=== PATIENT | female | born 1985 | race Two or more races ===

== ENCOUNTER 2018-04-21 02:04 | Emergency (ER) | payer SELFPAY ==
[~2018-04-21] VITALS: Ht 170.2 cm; Wt 86.2 kg
[2018-04-21 04:17] VITALS: BP 117/87
[2018-04-21] MEDS ORDERED: HYDROcodone-ACET 10/325MG TAB PO ONE (04:30)
[2018-04-21] MEDS ORDERED: cefTRIAXone SOD 1,000 MG VL IM ONE (04:30)
[2018-04-21] MEDS ORDERED: methylPREDNISolone SOD SUCC 125 MG/2 ML VL IM ONE (04:30)
== END 2018-04-21 05:01 | disposition home or self-care (01) ==
LOC: ER 02:09
DX: S02.5XXA Fracture of tooth (traumatic), initial encounter for closed fracture (principal); X58.XXXA Exposure to other specified factors, initial encounter; Y93.89 Activity, other specified; Y99.8 Other external cause status; Y92.89 Other specified places as the place of occurrence of the external cause
CPT/HCPCS: 96372; 99283; J0696; J2930